=== PATIENT | male | born 1995 | race Caucasian/White ===

== ENCOUNTER 2018-07-09 03:02 | Emergency (ER) | payer SELFPAY ==
[~2018-07-09] VITALS: Ht 172.7 cm; Wt 81.6 kg
[~2018-07-09 03:02] MED LIST: ACET-2267 PO; ALBU2.5V4 NEB; ATOM40CA3 PO; CITA20TA9 PO; CLON1TAB13 PO; ESOM20CA PO; FLUO20CA42 PO; HYDR-34 PO; IBUP-2055 PO; LORA-877 PO; LORA1TAB PO; MONT10TA24 PO; PERM60CR4 TP; SERT100T8 PO; SUMA100T2 PO; VIVANCE PO
--- OUTSIDE RECORDS SUMMARY | 2018-07-09 03:18 | XMS REPORT ---
Author Author OCTAVIA JONES eClinicalWorks Address Unknown Phone Unavailable Care Team Providers Care Morgue Librarian Name Role Phone OCTAVIA JONES CP Unavailable Allergies, Adverse Reactions, Alerts Substance Reaction Event Type N.K.D.A. Info Not Available Non Drug Allergy Problems Problem Type Condition Code Onset Dates Condition Status Assessment Encounter for dental examination Z01.20 Active Problem Encounter for dental examination Z01.20 Active Medications Medication Code System Code Instructions Start Date End Date Status Dosage Gabapentin [facility] [address]-69 300 MG Orally twice a day 1 caps Lexapro [facility] [address]-45 20 MG Orally Once a day Feb 12, 2015 1 tablet Vyvanse [facility] [address]-52 20 MG Orally Once a day Feb 12, 2015 1 capsule in the morning Procedures Procedure Coding System Code Date TOPICAL FLUORIDE VARNISH CPT-4 D1206 Feb 24, 2015 PROPHYLAXIS - ADULT CPT-4 D1110 Feb 24, 2015 Vital Signs Date/Time: Feb 24, 2015 Blood Pressure Diastolic 85 mmHg Blood Pressure Systolic 132 mmHg Cardiac Monitoring Heart Rate 95 bpm Results No Known Results Summary Purpose eClinicalWorks Submission
--- OUTSIDE RECORDS SUMMARY | 2018-07-09 03:18 | XMS REPORT ---
Author Author LEIGHTON FRANCO Organization [facility] Address Unknown Care Team Providers Care Superintendent Storage Area Name Role Phone LEIGHTON FRANCO Unavailable PROBLEMS Type Condition ICD9-CM Code DFD14-NW Code Onset Dates Condition Status SNOMED Code Problem ADD (attention deficit disorder) F90.0 Active 081473768 Problem Bipolar 1 disorder F31.9 Active 164802206 Problem Encounter for dental examination Z01.20 Active 534908525 ALLERGIES No Known Allergies SOCIAL HISTORY Never Assessed PLAN OF CARE Activity Details Follow Up prn Reason:Prophy VITAL SIGNS Blood pressure systolic 131 mmHg 2016-07-06 Blood pressure diastolic 92 mmHg 2016-07-06 MEDICATIONS Medication Instructions Dosage Frequency Start Date End Date Duration Status Gabapentin 300 MG Orally three times a day 1 caps 8h Active Rexulti 0.5 MG Orally Once a day 1 tablet 24h Mar, 30 day(s) Active Lexapro 20 MG Orally Once a day 1 tablet 24h Feb, Active Vyvanse 20 MG Orally. Once a day 1 capsule in the morning 24h Feb, Active Rexulti 0.5 TAKE ONE TABLET BY MOUTH DAILY 30 Active RESULTS No Results PROCEDURES Procedure Date Ordered Result Body Site RSN COMPOS-4/> SURF/W/INCISAL ANG July 06, 2016 Billing Notes on claim July 06, 2016 IMMUNIZATIONS No Known Immunizations MEDICAL (GENERAL) HISTORY Type Description Date Medical History GI issues with significant weight loss Medical History Seizures Surgical History Esophageal 08/2014 Hospitalization History [facility] seizure 11/2014 Hospitalization History [place] 12/2014
--- OUTSIDE RECORDS SUMMARY | 2018-07-09 03:18 | XMS REPORT ---
Author Author ALINE CALIXTO [facility] eClinicalWorks Address Unknown Phone Unavailable Care Team Providers Care Shear Assembler Name Role Phone ALINE CALIXTO CP Unavailable Allergies No Known Allergies Problems Problem Type Condition Code Onset Dates Condition Status Problem Encounter for dental examination Z01.20 Active Medications No Known Medications Results No Known Results Summary Purpose eClinicalWorks Submission
--- OUTSIDE RECORDS SUMMARY | 2018-07-09 03:18 | XMS REPORT | Clinical Summary ---
Author Author [facility] Organization [facility] Address Unknown Phone Unavailable Care Team Providers Care Nuclear Licensing Engineer Name Role Phone Joi Devine Alfredo CLINICAL RADIOLOGIST Unavailable No Pcp, Na PCP Unavailable Anny Silver MD Unavailable Source Comments Some departments are not documenting in the electronic medical record. If you do not see the information that you expected, contact Release of Information in the Health Information Management department at [phone] for further assistance in locating additional records.[facility] Allergies No Known Allergies Medications End Date Status Medication Sig Dispensed Refills Start Date Active escitalopram oxalate Take 20 mg by 0 (LEXAPRO) 20 mg tablet mouth daily. Active GABAPENTIN (NEURONTIN PO) Take 300 mg 0 by mouth twice daily. Active lisdexamfetamine(+) Take 30 mg by 0 (VYVANSE) 30 mg capsule mouth every morning Active Problems No known active problems Family History Medical History Relation Name Comments Hypertension Father Diabetes Maternal Grandmother Heart Disease Maternal Grandmother Cancer-Thyroid Paternal Grandfather Cancer-Thyroid Paternal Grandmother Relation Name Status Comments Father Alive Maternal Grandmother Mother Alive Paternal Grandfather Paternal Grandmother Social History Date Tobacco Use Types Packs/Day Years Used Current Every Day Smoker Sex Assigned at Date Recorded Not on file Industry Job Start Date Occupation Not on file Not on file Not on file Travel End Travel History Travel Start No recent travel history available. Last Filed Vital Signs Time Taken Vital Sign Reading 02/19/2015 10:49 AM TARP REPAIRER Blood Pressure 129/80 02/19/2015 10:49 AM TARP REPAIRER Pulse 87 - Temperature - 02/19/2015 10:49 AM TARP REPAIRER Respiratory Rate 18 - Oxygen Saturation - - Inhaled Oxygen - Concentration 02/19/2015 10:49 AM TARP REPAIRER Weight 63 kg (138 lb 14.2 oz) 02/19/2015 10:49 AM TARP REPAIRER Height 170.1 cm (5' 6.97") 02/19/2015 10:49 AM TARP REPAIRER Body Mass Index 21.77 Plan of Treatment Health Maintenance Due Date Last Done Comments PHYSICAL (COMPREHENSIVE) 2004 EXAM HIV SCREENING 2012 HPV VACCINES (1 - Male 2012 3-dose series) DTAP/TDAP VACCINES (1 - 05/07/2015 Tdap) INFLUENZA VACCINE 12/04/2018 MENINGOCOCCAL VACCINE Aged Out No longer eligible based (Radha ISAAC) on patient's age to complete this topic Results Not on filefrom Last 3 Months Insurance Type Payer Benefit Subscriber ID Effective Phone Address Plan / Dates Group Medicaid [facility] MEDICAID [facility] xxxxxxxxxxx [id number] COMMUNITY resent PLAN [place] Advance Directives Patient has advance care planning documents on file. For more information, please contact: [facility] [address] [place] [address]
--- OUTSIDE RECORDS SUMMARY | 2018-07-09 03:18 | XMS REPORT ---
Author Author ALMAS MACEDO Organization [employer]ClinicalWorks Address Unknown Phone Unavailable Care Team Providers Care Return To Vendor Name Role Phone ALMAS MACEDO CP Unavailable Allergies, Adverse Reactions, Alerts Substance Reaction Event Type N.K.D.A. Info Not Available Non Drug Allergy Problems Problem Type Condition ICD-9 Code Onset Dates Condition Status Assessment Generalized anxiety disorder 300.02 Active Medications Medication Code System Code Instructions Start Date End Date Status Dosage Zoloft [facility] [place] [address]-29 100 MG Orally Once a day Nov 04, 2014 1 tablet Procedures Procedure Coding System Code Date Office Visit, New Pt., Level 5 CPT-4 84028 Nov 04, 2014 Vital Signs Date/Time: Nov 04, 2014 Cardiac Monitoring Heart Rate 68 bpm Weight 120.8 lbs Height 68.0 in Ht Percentile 33.91 % BMI 18.37 Index Blood Pressure Diastolic 44 mmHg Blood Pressure Systolic 102 mmHg BMIPercentile 8.37 % Wt Percentile 11.01 % Results No Known Results Summary Purpose eClinicalWorks Submission
--- OUTSIDE RECORDS SUMMARY | 2018-07-09 03:18 | XMS REPORT ---
Author GODFREY Velázquez [facility] eClinicalWorks Address Unknown Phone Unavailable Care Team Providers Care Care Management Associate Name Role Phone GODFREY PARK CP Unavailable Allergies, Adverse Reactions, Alerts Substance Reaction Event Type N.K.D.A. Info Not Available Non Drug Allergy Problems Problem Type Condition Code Onset Dates Condition Status Problem ADD (attention deficit disorder) F90.0 Active Problem Encounter for dental examination Z01.20 Active Problem Bipolar 1 disorder F31.9 Active Assessment Bipolar 1 disorder F31.9 Active Assessment ADD (attention deficit disorder) F90.0 Active Medications Medication Code System Code Instructions Start Date End Date Status Dosage Gabapentin [facility] [address]-31 300 MG Orally three times a day 1 caps Lexapro [facility] [address]-24 20 MG Orally Once a day Feb 12, 2015 1 tablet Rexulti [facility] [address]-41 0.5 MG Orally Once a day Mar 10, 2015 1 tablet Vyvanse [facility] [address]-74 20 MG Orally. Once a day Feb 12, 2015 1 capsule in the morning Procedures Procedure Coding System Code Date Office Visit, Est Pt., Level 2 CPT-4 27621 June 22, 2015 Vital Signs Date/Time: June 22, 2015 Temperature 99.7 F Weight 156.0 lbs Height 69 in BMI 23.03 Index Blood Pressure Diastolic 75 mmHg Blood Pressure Systolic 110 mmHg Cardiac Monitoring Heart Rate 112 bpm BMIPercentile 63.91 % Wt Percentile 61.59 % Results No Known Results Summary Purpose eClinicalWorks Submission
--- OUTSIDE RECORDS SUMMARY | 2018-07-09 03:18 | XMS REPORT ---
Author Author ALINE CALIXTO Organization [employer]ClinicalWorks Address Unknown Phone Unavailable Care Team Providers Care Joint Terminal Attack Controller Name Role Phone ALINE CALIXTO CP Unavailable Allergies No Known Allergies Problems Problem Type Condition Code Onset Dates Condition Status Assessment Generalized anxiety disorder F41.1 Active Assessment Attention deficit disorder F90.0 Active Assessment Bipolar 1 disorder, depressed, moderate F31.32 Active Medications Medication Code System Code Instructions Start Date End Date Status Dosage Vyvanse [facility] [address]-73 20 MG Orally Once a day Feb 12, 2015 1 capsule in the morning Lexapro [facility] [address]-84 20 MG Orally Once a day Feb 12, [address] [facility] [address]-54 300 MG Orally twice a day 1 caps Vital Signs Date/Time: Feb 12, 2015 Cardiac Monitoring Heart Rate 80 bpm Weight 143 lbs Height 69 in Ht Percentile 45.92 % BMI 21.12 Index Blood Pressure Diastolic 60 mmHg Blood Pressure Systolic 106 mmHg BMIPercentile 41.55 % Wt Percentile 43.36 % Results No Known Results Summary Purpose eClinicalWorks Submission
--- OUTSIDE RECORDS SUMMARY | 2018-07-09 03:19 | XMS REPORT ---
Author Author ALMAS MACEDO Organization [employer]ClinicalWorks Address Unknown Phone Unavailable Care Team Providers Care Public Area Supervisor Name Role Phone ALMAS MACEDO CP Unavailable Allergies, Adverse Reactions, Alerts Substance Reaction Event Type N.K.D.A. Info Not Available Non Drug Allergy Problems Problem Type Condition Code Onset Dates Condition Status Assessment Bipolar 1 disorder, depressed, moderate F31.32 Active Medications Medication Code System Code Instructions Start Date End Date Status Dosage Gabapentin [facility] 2[facility] [address]-90 100 MG Orally twice a day 2 caps Zoloft [facility] 2[facility] [address]-91 25 MG Orally Once a day Nov 04, 2014 1 tablet Procedures Procedure Coding System Code Date Office Visit, Est Pt., Level 3 CPT-4 95425 Dec 09, 2014 Vital Signs Date/Time: Dec 09, 2014 Cardiac Monitoring Heart Rate 96 bpm Weight 135.2 lbs Height 68.2 in Ht Percentile 35.74 % BMI 20.43 Index Blood Pressure Diastolic 60 mmHg Blood Pressure Systolic 110 mmHg BMIPercentile 32.86 % Wt Percentile 31.27 % Results No Known Results Summary Purpose eClinicalWorks Submission
--- OUTSIDE RECORDS SUMMARY | 2018-07-09 03:19 | XMS REPORT ---
Author Author CRISTOFER ARTEAGA Organization eClinicalWorks Address Unknown Phone Unavailable Care Team Providers Care Rehab Specialist Name Role Phone CRISTOFER ARTEAGA CP Unavailable Allergies, Adverse Reactions, Alerts Substance Reaction Event Type N.K.D.A. Info Not Available Non Drug Allergy Problems Problem Type Condition Code Onset Dates Condition Status Assessment Dental examination Z01.20 Active Medications Medication Code System Code Instructions Start Date End Date Status Dosage Lexapro [facility] [address]-11 20 MG Orally Once a day Feb 12, 2015 1 tablet Vyvanse [facility] [address]-28 20 MG Orally Once a day Feb 12, 2015 1 capsule in the morning Gabapentin [facility] [address]-67 300 MG Orally twice a day 1 caps Procedures Procedure Coding System Code Date INTRAORL-PERIAPICAL 1 FILM 06447 CPT-4 D0220 Feb 23, 2015 LTD ORAL EVALUATION - PROBLEM FOCUS CPT-4 D0140 Feb 23, 2015 Vital Signs Date/Time: Feb 23, 2015 Blood Pressure Diastolic 85 mmHg Blood Pressure Systolic 139 mmHg Results No Known Results Summary Purpose eClinicalWorks Submission
--- OUTSIDE RECORDS SUMMARY | 2018-07-09 03:19 | XMS REPORT ---
Author Author LEIGHTON FRANCO Organization [facility] Address Unknown Care Team Providers Care Blood Tester Fowl Name Role Phone LEIGHTON FRANCO Unavailable PROBLEMS Type Condition ICD9-CM Code OWC17-SC Code Onset Dates Condition Status SNOMED Code Problem ADD (attention deficit disorder) F90.0 Active 684936185 Problem Bipolar 1 disorder F31.9 Active 648734683 Problem Encounter for dental examination Z01.20 Active 674410781 ALLERGIES No Known Allergies SOCIAL HISTORY Never Assessed PLAN OF CARE Activity Details Follow Up prn Reason:1 hour filling VITAL SIGNS MEDICATIONS Medication Instructions Dosage Frequency Start Date End Date Duration Status Rexulti 0.5 MG Orally Once a day 1 tablet 24h Mar, 30 day(s) Active Lexapro 20 MG Orally Once a day 1 tablet 24h Feb, Active Rexulti 0.5 TAKE ONE TABLET BY MOUTH DAILY 30 Active Gabapentin 300 MG Orally three times a day 1 caps 8h Active Vyvanse 20 MG Orally. Once a day 1 capsule in the morning 24h Feb, Active RESULTS No Results PROCEDURES Procedure Date Ordered Result Body Site LTD ORAL EVALUATION - PROBLEM FOCUS Apr 22, 2016 INTRAORL-PERIAPICAL 1 FILM 02087 Apr 22, 2016 IMMUNIZATIONS No Known Immunizations MEDICAL (GENERAL) HISTORY Type Description Date Medical History GI issues with significant weight loss Medical History Seizures Surgical History Esophageal 08/2014 Hospitalization History [facility] seizure 11/2014 Hospitalization History [place] 12/2014
--- OUTSIDE RECORDS SUMMARY | 2018-07-09 03:19 | XMS REPORT ---
Author Author ALINE CALIXTO Organization eClinicalWorks Address Unknown Phone Unavailable Care Team Providers Care System Technologist Name Role Phone ALINE CALIXTO CP Unavailable Allergies No Known Allergies Problems Problem Type Condition Code Onset Dates Condition Status Assessment Bipolar 1 disorder, depressed, moderate F31.32 Active Assessment Generalized anxiety disorder F41.1 Active Problem Encounter for dental examination Z01.20 Active Assessment Major depressive disorder F32.9 Active Medications Medication Code System Code Instructions Start Date End Date Status Dosage Rexulti [facility] [address]-50 0.5 MG Orally Once a day Mar 10, 2015 1 tablet Vyvanse [facility] [address]-53 20 MG Orally Once a day Feb 12, 2015 1 capsule in the morning Lexapro [facility] [address]-14 20 MG Orally Once a day Feb 12, 2015 1 tablet Gabapentin [facility] [address]-93 300 MG Orally three times a day 1 caps Procedures Procedure Coding System Code Date Office Visit, Est Pt., Level 3 CPT-4 73211 Mar 10, 2015 Vital Signs Date/Time: Mar 10, 2015 Cardiac Monitoring Heart Rate 98 bpm Weight 145.5 lbs Height 69 in Ht Percentile 45.6 % BMI 21.48 Index Blood Pressure Diastolic 72 mmHg Blood Pressure Systolic 128 mmHg BMIPercentile 46.01 % Wt Percentile 46.95 % Results No Known Results Summary Purpose eClinicalWorks Submission
--- OUTSIDE RECORDS SUMMARY | 2018-07-09 03:19 | XMS REPORT ---
Author Author ALMAS MACEDO Organization eClinicalWorks Address Unknown Phone Unavailable Care Team Providers Care Wastewater Superintendent Name Role Phone ALMAS MACEDO CP Unavailable Allergies, Adverse Reactions, Alerts Substance Reaction Event Type N.K.D.A. Info Not Available Non Drug Allergy Problems Problem Type Condition Code Onset Dates Condition Status Assessment Bipolar 1 disorder, depressed, moderate F31.32 Active Medications Medication Code System Code Instructions Start Date End Date Status Dosage Zoloft [facility] [address]-35 50 MG Orally Once a day Nov 04, 2014 1 tablet Gabapentin [facility] [address]-83 300 MG Orally twice a day 1 caps Procedures Procedure Coding System Code Date Office Visit, Est Pt., Level 3 CPT-4 19876 Jan 13, 2015 Vital Signs Date/Time: Jan 13, 2015 Blood Pressure Systolic 110 mmHg Weight 137.9 lbs Height 68.2 in Wt Percentile 35.19 % Ht Percentile 35.39 % BMI 20.84 Index Blood Pressure Diastolic 55 mmHg BMIPercentile 38.19 % Results No Known Results Summary Purpose eClinicalWorks Submission
--- OUTSIDE RECORDS SUMMARY | 2018-07-09 03:20 | XMS REPORT | Continuity of Care Document ---
Author Organization Unknown Address Unknown Allergies Active Description Code Type Severity Reaction Onset Reported/Identified Relationship to Patient Clinical Status Yes No Known Drug Allergies [id number] Drug Allergy Unknown N/A 01/19/2010 Medications There is no data. Problems Date Dx Coded Attending Type Code Diagnosis Diagnosed By 01/26/2010 Ot 474.00 05/27/2014 Ot 474.00 05/27/2014 Ot V72.63 05/27/2014 Ot V74.8 05/29/2014 JANIE WILSON, MILDRED S Ot 530.11 05/29/2014 JANIE WILSON, MILDRED S Ot 530.3 05/29/2014 JANIE WILSON, MILDRED S Ot 553.3 05/29/2014 JANIE WILSON, MILDRED S Ot 787.99 06/17/2014 JANIE WILSON, MILDRED S Ot V72.84 06/19/2014 JANIE WILSON, MILDRED S Ot 530.11 06/19/2014 JANIE WILSON, MILDRED S Ot 553.3 06/24/2014 JANIE WILSON, MILDRED S Ot V72.84 06/27/2014 Ot 474.00 06/27/2014 Ot V72.63 06/27/2014 Ot V74.8 07/08/2014 Ot 474.00 07/08/2014 Ot V72.63 07/08/2014 Ot V74.8 07/10/2014 JANIE WILSON, MILDRED S Ot 530.11 08/01/2014 JANIE WILSON, MILDRED S Ot 530.11 08/01/2014 JANIE WILSON, MILDRED S Ot V72.63 08/01/2014 JANIE WILSON, MILDRED S Ot V74.8 08/04/2014 JANIE WILSON, MILDRED S Ot 530.11 08/04/2014 JANIE WILSON, MILDRED S Ot 530.3 08/04/2014 JANIE WILSON, MILDRED S Ot 530.81 08/04/2014 JANIE WILSON, MILDRED S Ot 553.3 08/12/2014 Ot 474.00 08/12/2014 Ot V72.63 08/12/2014 Ot V74.8 08/13/2014 JAIME WILSON, FELICITAS Fernádnez Ot 783.21 08/13/2014 JAIME WILSON, FELICITAS Fernández Ot 787.03 08/13/2014 JAIME WILSON, FELICITAS Fernández Ot 789.00 08/13/2014 JANIE WILSON, MILDRED S Ot V72.84 08/13/2014 JANIE WILSON, MILDRED S Ot V72.84 08/13/2014 JANIE WILSON, MILDRED S Ot V72.84 08/13/2014 JANIE WILSON, MILDRED S Ot 530.11 08/13/2014 JANIE WILSON, MILDRED S Ot V72.63 08/13/2014 JANIE WILSON, MILDRED S Ot V74.8 08/13/2014 JANIE WILSON, MILDRED S Ot 530.11 08/13/2014 JANIE WILSON, MILDRED S Ot V72.63 08/13/2014 JANIE WILSON, MILDRED S Ot V74.8 08/26/2014 JAIME WILSON, FELICITAS Fernández Ot 783.21 08/26/2014 JAIME WILSON, FELICITAS Fernández Ot 787.03 08/26/2014 JAIME WILSON, FELICITAS Fernández Ot 789.00 08/26/2014 JANIE WILSON, MILDRED S Ot 530.11 08/26/2014 JANIE WILSON, MILDRED S Ot V72.63 08/26/2014 JANIE WILSON, MILDRED S Ot V74.8 10/14/2014 JANIE WILSON, MILRDED S Ot 783.21 10/14/2014 JANIE WILSON, MILDRED S Ot V12.79 10/14/2014 JANIE WILSON, MILDRED S Ot V45.89 10/28/2014 REHAN SQUIRES STAVE [employer] HAND Ot 133.0 10/28/2014 REHAN SQUIRES ST[employer] HAND Ot 311 10/28/2014 REHAN SQUIRES STAVE M[employer] HAND Ot 314.01 10/28/2014 REHAN SQUIRES STAVE [employer] HAND Ot 783.21 10/28/2014 REHAN SQUIRES STAVE MILL HAND Ot 959.01 10/28/2014 REHAN SQUIRES STAVE MILL HAND Ot E000.8 10/28/2014 REHAN SQUIRES STAVE MILL HAND Ot E849.0 10/28/2014 REHAN SQUIRES STAVE MILL HAND Ot E880.9 10/28/2014 REHAN SQUIRES STAVE MILL HAND Ot V58.69 11/13/2014 JAIME WILSON, FELICITAS Fernández Ot 276.51 11/13/2014 JAIME WILSON, FELICITAS Fernández Ot 486 11/13/2014 JAIME WILSON, FELICITAS Fernández Ot 493.90 11/13/2014 JAIME WILSON, FELICITAS Fernández Ot 783.0 11/13/2014 JAIME WILSON, FELICITAS Jolene Ot 783.21 11/28/2014 JAIME WILSON, FELICITAS Jolene Ot 276.51 11/28/2014 JAIME WILSON, FELICITAS Fernández Ot 493.90 11/28/2014 JAIME WILSON, FELICITAS Fernández Ot 780.39 03/20/2015 FELICITAS SANDOVAL MD Jolene Ot R10.9 03/20/2015 FELICITAS SANDOVAL MD Jolene Ot R11.2 Procedures There is no data. Results There is no data. Encounters ACCT No. Visit Date/Time Discharge Status Pt. Type Provider Facility Loc./Unit Complaint [id number] 03/04/2015 07:10:00 03/04/2015 23:59:59 CLS Outpatient FELICITAS SANDOVAL MD Via [facility] [id number] 11/26/2014 21:10:00 11/28/2014 09:30:00 DIS Inpatient FELICITAS SANDOVAL MD Via [facility] [id number] 11/13/2014 12:13:00 11/13/2014 16:40:00 DIS Inpatient FELICITAS SANDOVAL MD Via [address] [id number] 10/28/2014 11:19:00 10/28/2014 13:39:00 DIS Emergency REHAN SQUIRES APRN Via [facility] [id number] 10/14/2014 10:16:00 10/14/2014 12:40:00 DIS Outpatient MILDRED LIMA MD Via [facility] [id number] 08/04/2014 06:02:00 08/04/2014 13:00:00 DIS Outpatient MILDRED LIMA MD Via [facility] [id number] 07/30/2014 10:30:00 07/30/2014 23:59:59 CLS Outpatient MILDRED LIMA MD Via [facility] [id number] 07/10/2014 08:01:00 07/10/2014 10:30:00 DIS Outpatient JANIE WILSON, MILDRED Cifuentes Via [facility] [id number] 07/09/2014 05:54:00 07/09/2014 23:59:59 CLS Outpatient MILDRED LIMA MD Via [facility] [id number] 06/19/2014 06:58:00 06/19/2014 09:12:00 DIS Outpatient MILDRED LIMA MD Via [facility] [id number] 06/18/2014 06:14:00 06/18/2014 23:59:59 CLS Outpatient JANIE WILSON MILDRED Vane Via [facility] [id number] 05/29/2014 07:56:00 05/29/2014 11:40:00 DIS Outpatient MILDRED LIMA MD Via [facility] [id number] 05/28/2014 11:55:00 05/28/2014 23:59:59 CLS Outpatient MILDRED LIMA MD Via [facility] [id number] 05/27/2014 12:02:00 05/27/2014 23:59:59 CLS Outpatient FELICITAS SANDOVAL MD Via [facility] [id number] 01/26/2010 05:52:00 Document Registration [id number] 01/19/2010 14:30:00 Document Registration [id number] 11/27/2014 07:42:45 ACT Document Registration
[2018-07-09] MEDS ORDERED: AMOX-358 PO (03:39)
--- NOTE | 2018-07-09 03:40 | ED EENT ---
History of Present Illness General Chief Complaint: Ear Problems Nursing Triage Note: Pt amb to room #6 w/o difficulty. a&Ox4. c/o stabbing pain to Lt ear that woke him up this am. Pt reports earache in Rt ear for approx one week and was due to be seen @ [facility] this am. Reports to have placed peppermint oil, lavender oil, and vix rub on Lt ear in an attempt to help discomfort P[employer]. Pt noted to be restless during triage. Source: patient Exam Limitations: no limitations History of Present Illness Date Seen by Provider: July 09, 2018 Time Seen by Provider: 03:27 Initial Comments Patient presents with his significant other and chief complaint that he's having some pain in his right ear earlier in the day that spread to include his left ear as well but now his left ear is insignificant sharp stabbing pain. No discharge from either ear. No known fever or chills. He said he doesn't have any Tylenol Motrin other medicines to take at home. Has not been on antibiotics recently. He did try some essential oils without benefit. No history of previous ear surgery. Allergies and Home Medications Allergies Coded Allergies: No Known Drug Allergies (Unverified , 01/19/10) Home Medications Acetaminophen 500 Mg Tablet, 1,000 MG PO DAILY PRN for XAVIER, (Reported) Ibuprofen 200 Mg Tablet, 800 MG PO DAILY PRN for PAIN, (Reported) Loratadine/Pseudoephedrine 1 Each Tab.er.24h, 1 TAB PO DAILY, (Reported) Montelukast Sodium 10 Mg Tablet, 10 MG PO HS, (Reported) Sertraline HCl 100 Mg Tablet, 100 MG PO DAILY, (Reported) Sumatriptan Succinate 100 Mg Tablet, 100 MG PO UD PRN for MIGRAINE, (Reported) Patient Home Medication List Home Medication List Reviewed: Yes Review of Systems Review of Systems Constitutional: No chills, No fever; malaise Eyes: Denies Blindness, Denies Blurred Vision Ears: Denies Dizziness; Pain; Denies Tinnitus, Denies Bloody Discharge, Denies Clear Discharge, Denies Purulent Discharge Nose: denies clots, denies congestion Mouth: denies clots, denies loose teeth Throat: denies swelling, denies discharge Past Bukdwxf-Irekyf-Rusuxf Hx Patient Social History Alcohol Use: Rarely Uses Recreational Drug Use: Yes Drug of Choice: THC Smoking Status: Current Everyday Smoker Type Used: Cigarettes 2nd Hand Smoke Exposure: No Recent Foreign Travel: No Contact w/Someone Who Travel: No Recent Infectious Disease Expo: No Immunizations Up To Date Tetanus Booster (TDap): Unknown PED Vaccines UTD: No Date of Influenza Vaccine: Dec 18, 2013 Past Medical History Surgeries: Yes (MULTIPLE EGD'S - FLAP SURGERY. ) Abdominal Respiratory: Yes Asthma Cardiac: No Neurological: No Reproductive Disorders: No Sexually Transmitted Disease: No Gastrointestinal: Yes (ACID REFLUX) Gastroesophageal Reflux Musculoskeletal: No Endocrine: No Cancer: No Psychosocial: Yes ADD/ADHD, Anxiety, Bipolar, Violent Behavior, Depression Integumentary: No Blood Disorders: No Family Medical History ANXIETY 19 MOTHER BORDERLINE PERSONALITY DISORDER 19 MOTHER DEPRESSION 19 MOTHER Hypertension 19 FATHER Seizure disorder 19 MOTHER Physical Exam Vital Signs Vital Signs - First Documented 07/09/18 03:19 Temp 98.0 Pulse 71 Resp 17 B/P (MAP) 157/72 (100) Pulse Ox 98 O2 Delivery Room Air Height, Weight, BMI Height: 5'8.00" Weight: 180lbs. 0.0oz. 81.551640kb; BMI Method:Stated General Appearance: WD/WN, mild distress Eyes: bilateral eye normal inspection, bilateral eye PERRL, bilateral eye EOMI Ears: bilateral ear auricle normal, bilateral ear canal normal, bilateral ear TM dull, bilateral ear TM red, bilateral ear TM bulging Nose: normal inspection; No active bleeding Mouth/Throat: normal mouth inspection, pharynx normal Neck: non-tender, full range of motion, normal inspection Cardiovascular: normal peripheral pulses, regular rate, rhythm Progress/Results/Core Measures Results/Orders My Orders Orders - XIAO MASON Ketorolac Injection (Toradol Injection) (07/09/18 03:45) Amoxicillin/Clavulanate Tablet (Augmenti (07/09/18 03:45) Vital Signs/I&O 07/09/18 03:19 Temp 98.0 Pulse 71 Resp 17 B/P (MAP) 157/72 (100) Pulse Ox 98 O2 Delivery Room Air Blood Pressure Mean: 100 Progress Progress Note : Time: 03:37 Progress Note Toradol, hot compresses, Augmentin. Departure Impression Primary Impression: Otitis media Qualified Codes: H66.003 - Acute suppurative otitis media without spontaneous rupture of ear drum, bilateral Disposition: 01 HOME, SELF-CARE Condition: Stable Departure-Patient Inst. Decision time for Depature: 03:38 Referrals: [facility] (PCP) Primary Care Physician Patient Instructions: Ear Infections (Otitis Media) (DC) Add. Discharge Instructions: Drink plenty of fluids. 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 Warm compresses applied as necessary along with Tylenol 1000 mg every 8 hours and/or ibuprofen 800 mg every 8 hours. All discharge instructions reviewed with patient and/or family. Voiced understanding. Scripts Amoxicillin/Potassium Clav (Augmentin 875-125 Tablet) 1 Each Tablet 1 EACH PO BID for 10 Days, #19 TAB 0 Refills Prov: XIAO MASON 07/09/18 Work/School Note: Work Release Form Date Seen in the Emergency Department: July 09, 2018 Return to Work: July 10, 2018 Restrictions: No Restrictions XIAO MASON July 09, 2018 03:40
[2018-07-09] MEDS ORDERED: AUGMENTIN 875 MG TAB (AMOXICILLIN/CLAVULANATE) PO ONE (03:45)
[2018-07-09] MEDS ORDERED: KETOROLAC 60 MG/2 ML VIAL IM ONE (03:45)
[2018-07-09 04:04] VITALS: BP 156/45
== END 2018-07-09 04:04 | disposition home or self-care (01) ==
LOC: EDUNIT# 03:02 → ER 03:05
DX: H66.93 Otitis media, unspecified, bilateral (principal); K21.9 Gastro-esophageal reflux disease without esophagitis; F90.9 Attention-deficit hyperactivity disorder, unspecified type; F98.8 Other specified behavioral and emotional disorders with onset usually occurring in childhood and adolescence; F41.9 Anxiety disorder, unspecified; F31.9 Bipolar disorder, unspecified; J45.909 Unspecified asthma, uncomplicated; F12.10 Cannabis abuse, uncomplicated; F17.210 Nicotine dependence, cigarettes, uncomplicated; Z98.890 Other specified postprocedural states
CPT/HCPCS: 99284

== ENCOUNTER 2021-01-23 02:26 | Emergency (ER) | payer SELFPAY ==
[~2021-01-23] VITALS: Ht 175 cm; Wt 99.8 kg
[~2021-01-23 02:26] MED LIST changes: +AMOX-358 PO; -IBUP-2055 PO; +IBUP-2473 PO; -MONT10TA24 PO; +MONT10TA32 PO; +SERT-414 PO; -SERT100T8 PO
[2021-01-23] MEDS ORDERED: LACTATED RINGERS 1,000 ML IV ONE (03:00)
[2021-01-23 03:08] LABS: BASOPHILS # (AUTO) 0.1 10^3/uL (0.0-0.1); BASOPHILS % (AUTO) 0 % (0-10); EOSINOPHILS % (AUTO) 0 % (0-10); HEMATOCRIT 44 % (40-54); HEMOGLOBIN 15.7 g/dL (13.3-17.7); LYMPHOCYTES # (AUTO) 0.7 10^3/uL (1.0-4.0); LYMPHOCYTES % (AUTO) 4 % (12-44); MEAN CORPUSCULAR HEMOGLOBIN 32 pg (25-34); MEAN CORPUSCULAR HGB CONC 35 g/dL (32-36); MEAN CORPUSCULAR VOLUME 90 fL (80-99); MEAN PLATELET VOLUME 9.2 fL (9.0-12.2); MONOCYTES # (AUTO) 1.4 10^3/uL (0.0-1.0); MONOCYTES % (AUTO) 7 % (0-12); NEUTROPHILS # (AUTO) 18.3 10^3/uL (1.8-7.8); NEUTROPHILS % (AUTO) 89 % (42-75); PLATELET COUNT 240 10^3/uL (130-400); WHITE BLOOD COUNT 20.6 10^3/uL (4.3-11.0)
[2021-01-23 03:18] LABS: ALBUMIN 4.8 GM/DL (3.2-4.5); CHLORIDE 104 MMOL/L (98-107); POTASSIUM 3.9 MMOL/L (3.6-5.0); SODIUM 136 MMOL/L (135-145)
[2021-01-23 03:19] LABS: AMYLASE 46 U/L (25-125); CALCIUM 9.8 MG/DL (8.5-10.1)
[2021-01-23 03:20] LABS: GLUCOSE 116 MG/DL (70-105)
[2021-01-23 03:21] LABS: TOTAL PROTEIN 7.9 GM/DL (6.4-8.2)
[2021-01-23 03:22] LABS: BILIRUBIN,TOTAL 0.5 MG/DL (0.1-1.0); CARBON DIOXIDE 17 MMOL/L (21-32)
[2021-01-23 03:24] LABS: ALKALINE PHOSPHATASE 75 U/L (40-136); CREATININE SERUM 1.01 MG/DL (0.60-1.30); GFR ESTIMATED 92
[2021-01-23 03:25] LABS: BUN/CREATININE RATIO 11
[2021-01-23 03:27] LABS: ALANINE AMINOTRANSFERASE 31 U/L (0-55)
[2021-01-23 03:28] LABS: LIPASE 29 U/L (8-78)
[2021-01-23 03:43] LABS: BAND NEUTROPHILS 11 %; LYMPHOCYTES % (MANUAL) 5 %; MONOCYTES % (MANUAL) 5 %; NEUTROPHILS % (MANUAL) 79 %
[2021-01-23 04:28] LABS: BILIRUBIN,URINE 1+ (NEGATIVE); CLARITY,URINE CLEAR; COLOR,URINE YELLOW; GLUCOSE, URINE (UA) NEGATIVE (NEGATIVE); KETONES,URINE 3+ (NEGATIVE); LEUKOCYTE ESTERASE ,URINE NEGATIVE (NEGATIVE); NITRITE,URINE NEGATIVE (NEGATIVE); PH,URINE 8.5 (5-9); PROTEIN,URINE 1+ (NEGATIVE)
[2021-01-23] MEDS ORDERED: IOHEXOL 350 MG/ML 100 ML (OMNIPAQUE 350) VIAL IV ONE (04:45)
[2021-01-23] MEDS ORDERED: NS 100 ML (IVPB) BAG IV ONE (04:45)
[2021-01-23] MEDS ORDERED: HOLD METFORMIN - RECEIVED CONTRAST 20 ML VIAL IV SCH (04:45)
[2021-01-23] MEDS ORDERED: CATHETER FLUSH 10 ML SYR IV PRN (04:45)
[2021-01-23 04:47] LABS: BACTERIA,URINE TRACE /HPF
[2021-01-23 04:49] LABS: AMPHETAMINE SCREEN, URINE NEGATIVE (NEGATIVE); BARBITURATE SCREEN URINE POSITIVE (NEGATIVE); BENZODIAZEPINES SCREEN URINE NEGATIVE (NEGATIVE); CANNABINOID SCREEN, URINE POSITIVE (NEGATIVE); COCAINE SCREEN URINE NEGATIVE (NEGATIVE); METHADONE STAT NEGATIVE (NEGATIVE); METHAMPHETAMINE SCREEN URINE S NEGATIVE (NEGATIVE); OPIATE SCREEN URINE POSITIVE (NEGATIVE); OXYCODONE STAT NEGATIVE (NEGATIVE); PROPOXYPHENE STAT NEGATIVE (NEGATIVE); TRICYCLIC ANTIDEPRESSANTS SCRE NEGATIVE (NEGATIVE)
--- NOTE | 2021-01-23 05:22 | Diagnostic Imaging Report ---
PROCEDURE: CT abdomen and pelvis with contrast. TECHNIQUE: Multiple contiguous axial images were obtained through the abdomen and pelvis after administration of intravenous contrast. Auto Exposure Controls were utilized during the CT exam to meet ALARA standards for radiation dose reduction. All CT scans use one or more of the following dose optimizing techniques: automated exposure control, MA and/or KvP adjustment based on patient size and exam type or iterative reconstruction. INDICATION: Abdominal pain The previous CT abdomen/pelvis exam of 11/26/2014 failed to show any sign of an acute abnormality of the abdomen or pelvis. On this exam, there does seem to be generalized thickening of the wall of the ascending colon and cecum. There is also some thickening of the wall of the rectosigmoid portion of the colon and to a lesser extent the descending colon. These findings are suspicious for acute colitis. There were also a few fluid-filled segments of small bowel present. These are nonspecific but could be related to coexistent enteritis. The appendix was not well-visualized but there are no indirect signs of acute appendicitis. There is no acute abnormality of the abdomen or pelvis noted otherwise. The lung bases are clear. The bone windows show no sign of a fracture or of a destructive lesion. IMPRESSION: 1. The findings do suggest colitis involving the ascending and descending colon as well as the rectosigmoid portion of the colon. There may also be an element of enteritis present. 2. There is no acute abnormality of the abdomen or pelvis noted otherwise. 3. These results were discussed with Dr. Iza García at the time of this dictation. Dictated by: Dictated on workstation # [id number]
--- NOTE | 2021-01-23 05:27 | ED GI ---
General Chief Complaint: Abdominal/GI Problems Stated Complaint: DIARRHEA,ABD PAIN Nursing Triage Note: Pt c/o abdominal pain x 1 week with diarrhea that has started last night. He reports that he is going to the bathroom 3 times an hour Source of Information: Patient History of Present Illness Date Seen by Provider: Jan 23, 2021 Time Seen by Provider: 02:53 Initial Comments PT ARRIVES VIA POV FROM HOME C/O GENERALIZED ABDOMINAL PAIN X 1 WEEK, PAIN IS GENERALIZED AND RADIATES AROUND TO BACK ON BOTH SIDES BEGAN HAVING NAUSEA/VOMITING/DIARRHEA LAST NIGHT HAS VOMITED X 1 TODAY, HAS HAD DIARRHEA 4 TIMES AN HOUR ALL DAY--STATES HE HAS BEEN INCONTINENT WITH DIARRHEA TODAY. HAS HAD SUBJECTIVE FEVER/SWEATS/CHILLS HAS BEEN EATING A LITTLE BIT TODAY AND DRINKING A LITTLE BIT OF LIQUIDS HAS BEEN URINATING NORMALLY NO KNOWN SICK CONTACTS OR SUSPICIOUS FOODS PT HAS HAD REPAIR OF A "GASTRIC FLAP" IN THE PAST, BUT NO OTHER GI PROBLEMS IN THE PAST AND NO GI PROBLEMS FOR A LONG TIME. PT HAS NOT HAD COVID-19 VACCINE PCP: [facility] Allergies and Home Medications Allergies Coded Allergies: No Known Drug Allergies (Unverified , 01/19/10) Patient Home Medication List Home Medication List Reviewed: Yes Acetaminophen (Tylenol Extra Strength) 500 Mg Tablet, 1,000 MG PO DAILY PRN for XAVIER, (Reported) Entered as Reported by: SANDRA CLINE on 11/27/14 1509 Amoxicillin/Potassium Clav (Augmentin 875-125 Tablet) 1 Each Tablet, 1 EACH PO BID Prescribed by: XIAO MASON on 07/09/18 0339 Ciprofloxacin HCl (Ciprofloxacin HCl) 500 Mg Tablet, 500 MG PO BID Prescribed by: MONY POLO on 01/23/21 0532 Dicyclomine HCl (Dicyclomine HCl) 20 Mg Tablet, 20 MG PO Q6H Prescribed by: MONY POLO on 01/23/21 0532 Ibuprofen (Ibuprofen) 200 Mg Tablet, 800 MG PO DAILY PRN for PAIN, (Reported) Entered as Reported by: SANDRA CLINE on 11/27/14 1509 Lactobacillus Acidophilus (Acidophilus Lactobacillus) 1 Gm Powder, 1 GM MC QID Prescribed by: MONY POLO on 01/23/21 0532 Loratadine/Pseudoephedrine (Claritin-D 24 Hour Tablet) 1 Each Tab.er.24h, 1 TAB PO DAILY, (Reported) Entered as Reported by: LETY WEBSTER on 11/13/141616 Metronidazole (Metronidazole) 500 Mg Tablet, 500 MG PO QID Prescribed by: MONY POLO on 01/23/21 0532 Montelukast Sodium (Montelukast Sodium) 10 Mg Tablet, 10 MG PO HS, (Reported) Entered as Reported by: LETY WEBSTER on 11/13/141616 Ondansetron (Ondansetron Odt) 4 Mg Tab.rapdis, 4 MG PO Q4H Prescribed by: MONY POLO on 01/23/21 0532 Sertraline HCl (Sertraline HCl) 100 Mg Tablet, 100 MG PO DAILY, (Reported) Entered as Reported by: LETY WEBSTER on 11/13/141616 Sumatriptan Succinate (Imitrex) 100 Mg Tablet, 100 MG PO UD PRN for MIGRAINE, (Reported) Entered as Reported by: LETY WEBSTER on 11/13/141616 Review of Systems Review of Systems Constitutional: see HPI, chills, diaphoresis, fever, malaise, weakness EENTM: No Symptoms Reported Respiratory: No Symptoms Reported Cardiovascular: No Symptoms Reported Gastrointestinal: See HPI, Abdominal Pain, Diarrhea, Nausea, Poor Appetite, Poor Fluid Intake, Vomiting Genitourinary: No Symptoms Reported Musculoskeletal: see HPI, back pain Skin: no symptoms reported Psychiatric/Neurological: No Symptoms Reported; Denies Headache Endocrine: No Symptoms Reported Hematologic/Lymphatic: No Symptoms Reported Past Tqdxjtn-Xybgsv-Nbfahy Hx Patient Social History Tobacco Use?: Yes Tobacco type used: Cigarettes Smoking Status: Current Everyday Smoker Use of E-Cig and/or Vaping dev: Yes E-Cig or Vaping type used: Nicotine, Marijuana Use of E-Cig and/or Vaping Dinesh: Current Everyday User Substance use?: Yes Substance type: Opiates/Opioids, Misuse of prescript meds, Marijuana, Other (BENZODIAZEPINES) Additional substance use comme: GETS THC, OPIATES AND BENZO'S OFF THE STREET Substance frequency: Daily Alcohol Use?: No Pt feels they are or have been: No Immunizations Up To Date Tetanus Booster (TDap): Unknown PED Vaccines UTD: No Influenza Vaccine Up-to-Date: No; Not Current First/Initial COVID19 Vaccinat: none Past Medical History Surgeries: Yes (MULTIPLE EGD'S - GASTRIC FLAP SURGERY. ) Abdominal Respiratory: Yes Asthma Cardiac: No Neurological: No Reproductive Disorders: No Sexually Transmitted Disease: No Gastrointestinal: Yes (ACID REFLUX) Gastroesophageal Reflux Musculoskeletal: No Endocrine: No HEENT: No (GLASSES) Cancer: No Psychosocial: Yes (POLYSUBSTANCE ABUSE) ADD/ADHD, Anxiety, Bipolar, Violent Behavior, Depression Integumentary: No Blood Disorders: No Family Medical History ANXIETY 19 MOTHER BORDERLINE PERSONALITY DISORDER 19 MOTHER DEPRESSION 19 MOTHER Hypertension 19 FATHER Seizure disorder 19 MOTHER Physical Exam Vital Signs Vital Signs - First Documented 01/23/21 02:50 Temp 37.0 Capillary Refill : Height/Weight/BMI Height: 5'8.00" Weight: 180lbs. 0.0oz. 81.666113co; 32.00 BMI Method:Stated General Appearance: WD/WN, no apparent distress HEENT: PERRL/EOMI, normal ENT inspection, other (ORAL MUCOSA MOIST) Neck: normal inspection Respiratory: normal breath sounds, no respiratory distress, no accessory muscle use Cardiovascular: regular rate, rhythm, no murmur Gastrointestinal: normal bowel sounds, soft, no organomegaly, no pulsatile mass; No distended, No guarding, No rebound; tenderness (MILD DIFFUSE TENDERNESS); No hernia, No mass Extremities: normal inspection Back: no vertebral tenderness, CVA tenderness (R), CVA tenderness (L) Neurologic/Psychiatric: film touch up inspector II-XII nml as tested, no motor/sensory deficits, alert, oriented x 3 Skin: normal color, warm/dry; No rash Progress/Results/Core Measures Results/Orders Lab Results Laboratory Tests Test 01/23/21 02:58 01/23/21 04:15 Range/Units White Blood Count 20.6 H 4.3-11.0 10^3/uL Red Blood Count 4.91 4.30-5.52 10^6/uL Hemoglobin 15.7 13.3-17.7 g/dL Hematocrit 44 40-54 % Mean Corpuscular Volume 90 80-99 fL Mean Corpuscular Hemoglobin 32 25-34 pg Mean Corpuscular Hemoglobin Concent 35 32-36 g/dL Red Cell Distribution Width 11.9 10.0-14.5 % Platelet Count 240 130-400 10^3/uL Mean Platelet Volume 9.2 9.0-12.2 fL Immature Granulocyte % (Auto) 0 % Neutrophils (%) (Auto) 89 H 42-75 % Lymphocytes (%) (Auto) 4 L 12-44 % Monocytes (%) (Auto) 7 0-12 % Eosinophils (%) (Auto) 0 0-10 % Basophils (%) (Auto) 0 0-10 % Neutrophils # (Auto) 18.3 H 1.8-7.8 10^3/uL Lymphocytes # (Auto) 0.7 L 1.0-4.0 10^3/uL Monocytes # (Auto) 1.4 H 0.0-1.0 10^3/uL Eosinophils # (Auto) 0.0 0.0-0.3 10^3/uL Basophils # (Auto) 0.1 0.0-0.1 10^3/uL Immature Granulocyte # (Auto) 0.1 0.0-0.1 10^3/uL Neutrophils % (Manual) 79 % Lymphocytes % (Manual) 5 % Monocytes % (Manual) 5 % Band Neutrophils 11 % Sodium Level 136 135-145 MMOL/L Potassium Level 3.9 3.6-5.0 MMOL/L Chloride Level 104 98-107 MMOL/L Carbon Dioxide Level 17 L 21-32 MMOL/L Anion Gap 15 H 5-14 MMOL/L Blood Urea Nitrogen 11 7-18 MG/DL Creatinine 1.01 0.60-1.30 MG/DL Estimat Glomerular Filtration Rate 92 BUN/Creatinine Ratio 11 Glucose Level 116 H 70-105 MG/DL Calcium Level 9.8 8.5-10.1 MG/DL Corrected Calcium 8.5-10.1 MG/DL Total Bilirubin 0.5 0.1-1.0 MG/DL Aspartate Amino Transf (AST/SGOT) 36 H 5-34 U/L Alanine Aminotransferase (ALT/SGPT) 31 0-55 U/L Alkaline Phosphatase 75 40-136 U/L Total Protein 7.9 6.4-8.2 GM/DL Albumin 4.8 H 3.2-4.5 GM/DL Amylase Level 46 25-125 U/L Lipase 29 8-78 U/L SARS-CoV-2 RNA (RT-PCR) Not Detected Not Detecte Urine Color YELLOW Urine Clarity CLEAR Urine pH 8.5 5-9 Urine Specific [place] 1.010 L 1.016-1.022 Urine Protein 1+ H NEGATIVE Urine Glucose (UA) NEGATIVE NEGATIVE Urine Ketones 3+ H NEGATIVE Urine Nitrite NEGATIVE NEGATIVE Urine Bilirubin 1+ H NEGATIVE Urine Urobilinogen 0.2 < = 1.0 MG/DL Urine Leukocyte Esterase NEGATIVE NEGATIVE Urine RBC (Auto) NEGATIVE NEGATIVE Urine RBC NONE /HPF Urine WBC NONE /HPF Urine Crystals NONE /LPF Urine Bacteria TRACE /HPF Urine Casts NONE /LPF Urine Mucus SMALL H /LPF Urine Culture Indicated NO Urine Opiates Screen POSITIVE H NEGATIVE Urine Oxycodone Screen NEGATIVE NEGATIVE Urine Methadone Screen NEGATIVE NEGATIVE Urine Propoxyphene Screen NEGATIVE NEGATIVE Urine Barbiturates Screen POSITIVE H NEGATIVE Ur Tricyclic Antidepressants Screen NEGATIVE NEGATIVE Urine Phencyclidine Screen NEGATIVE NEGATIVE Urine Amphetamines Screen NEGATIVE NEGATIVE Urine Methamphetamines Screen NEGATIVE NEGATIVE Urine Benzodiazepines Screen NEGATIVE NEGATIVE Urine Cocaine Screen NEGATIVE NEGATIVE Urine Cannabinoids Screen POSITIVE H NEGATIVE Micro Results Microbiology 01/23/21 Stool Culture - Final, Complete Campylobacter jejuni 01/23/21 C. difficile GDH Antigen & Toxins - Final, Complete My Orders Orders - MONY POLO DO Ed Iv/Invasive Line Start (01/23/21 02:52) Monitor-Rhythm Ecg Trace Only (01/23/21 02:52) Amylase (01/23/21 02:52) Cbc With Automated Diff (01/23/21 02:52) Comprehensive Metabolic Panel (01/23/21 02:52) Drug Screen Stat (Urine) (01/23/21 02:52) Lipase (01/23/21 02:52) Ua Culture If Indicated (01/23/21 02:52) Ed Iv/Invasive Line Start (01/23/21 02:52) Lactated Ringers (Lr 1000 Ml Iv Solution (01/23/21 03:00) Covid 19 Inhouse Test (01/23/21 02:52) Manual Differential (01/23/21 02:58) Ct Abdomen/Pelvis W (01/23/21 03:22) Iohexol Injection (Omnipaque 350 Mg/Ml 1 (01/23/21 04:45) Received Contrast (Hold Metformin- Contr (01/23/21 04:45) Sodium Chloride Flush (Catheter Flush Sy (01/23/21 04:45) Ns (Ivpb) (Sodium Chloride 0.9% Ivpb Bag (01/23/21 04:45) Ciprofloxacin Iv 400mg/200ml (Cipro Iv S (01/23/21 05:30) Metronidazole 500mg/100ml Ivpb (Flagyl 5 (01/23/21 05:30) Stool Culture (01/23/21 05:27) Fecal Wbc (01/23/21 05:27) C Difficile Ag + Toxin A/B. (01/23/21 05:27) Isolation Central Supply Req (01/23/21 05:27) Medications Given in ED Vital Signs/I&O 01/23/21 01/23/21 02:50 06:43 Temp 37.0 36.6 B/P (MAP) Progress Progress Note : Progress Note GIVEN IV FLUIDS AND ZOFRAN NO VOMITING DURING ER STAY HAD 2-3 STOOLS DURING ER STAY--CULTURES OBTAINED. NO DETERIORATION IN PT'S CONDITION DURING ER STAY Diagnostic Imaging Comments CT ABDOMEN/PELVIS--COLITIS, PER DR. EDMONDSON VIA PHONE AT 0517 Reviewed: Reviewed by Me, Discussed w/Radiologist Departure Impression Primary Impression: Colitis Additional Impression: Illicit drug use Disposition: HOME, SELF-CARE Condition: Improved Departure-Patient Inst. Decision time for Depature: 05:25 Referrals: [facility] (PCP) Primary Care Physician Patient Instructions: Colitis, Drug Abuse and Drug Addiction (DC) Add. Discharge Instructions: CLEAR LIQUIDS--WATER, BROTH, JELLO, GATORADE WHEN YOUR PAIN AND NAUSEA ARE BETTER, ADD BRATS DIET TO CLEAR LIQUIDS--BANANAS, RICE, APPLESAUCE, TOAST, SALTINES NO DRUGS!! TAKE ONLY MEDICATION THAT IS PRESCRIBED TO YOUR AND TAKE IT EXACTLY PRESCRIBED FOLLOW UP WITH [facility] IN 2-3 DAYS FOR FURTHER CARE, RETURN TO ER IF WORSE All discharge instructions reviewed with patient and/or family. Voiced understanding. Scripts Ondansetron (Ondansetron Odt) 4 Mg Tab.rapdis 4 MG PO Q4H for Nausea/Vomiting, #10 TAB Prov: CHRIST,MONY K DO 01/23/21 Dicyclomine HCl (Dicyclomine HCl) 20 Mg Tablet 20 MG PO Q6H for Abdominal Pain, #20 TAB Prov: CHRIST,MONY K DO 01/23/21 Metronidazole (Metronidazole) 500 Mg Tablet 500 MG PO QID, #28 TAB 0 Refills Prov: CHRIST,MONY K DO 01/23/21 Ciprofloxacin HCl (Ciprofloxacin HCl) 500 Mg Tablet 500 MG PO BID, #14 TAB Prov: MONY POLO DO 01/23/21 Lactobacillus Acidophilus (Acidophilus Lactobacillus) 1 Gm Powder 1 GM MC QID for 10 Days, #1 EA Prov: MONY POLO DO 01/23/21 MONY POLO DO Jan 23, 2021 05:27
[2021-01-23] MEDS ORDERED: CIPROFLOXACIN IV 400MG/200ML 200 ML IV ONE (05:30)
[2021-01-23] MEDS ORDERED: metroNIDAZOLE 500MG/100ML IVPB 100 ML IV ONE (05:30)
[2021-01-23] MEDS ORDERED: METR-145 PO (05:32)
[2021-01-23] MEDS ORDERED: CIPR500T5 PO (05:32)
[2021-01-23] MEDS ORDERED: DICY20TA10 PO (05:32)
[2021-01-23] MEDS ORDERED: ONDA4TAB11 PO (05:32)
[2021-01-23] MEDS ORDERED: LACT1POW8 MC (05:32)
== END 2021-01-23 06:43 | disposition home or self-care (01) ==
LOC: EDUNIT# 02:26 → ER 02:29
DX: K52.9 Noninfective gastroenteritis and colitis, unspecified (principal); F19.90 Other psychoactive substance use, unspecified, uncomplicated; J45.909 Unspecified asthma, uncomplicated; F41.9 Anxiety disorder, unspecified; F32.9 Major depressive disorder, single episode, unspecified; F17.210 Nicotine dependence, cigarettes, uncomplicated; Z20.822 Contact with and (suspected) exposure to COVID-19; Z79.899 Other long term (current) drug therapy
CPT/HCPCS: 36415; 74177; 80053; 80306; 81000; 82150; 83690; 85007; 85027; 87015; 87045; 87046; 87077; 87324; 87449; 87636; 87899; 93041

== ENCOUNTER 2021-05-15 10:17 | Emergency (ER) | payer SELFPAY ==
[~2021-05-15] VITALS: Ht 172 cm; Wt 77.0 kg
[~2021-05-15 10:17] MED LIST changes: +CIPR500T5 PO; +DICY20TA PO; +LACT1POW8 MC; +METR-145 PO; +MONT-40 PO; -MONT10TA32 PO; +ONDA4TAB11 PO
--- NOTE | 2021-05-15 10:55 | ED GI ---
General Chief Complaint: Abdominal/GI Problems Stated Complaint: ABD PAIN Nursing Triage Note: PT TO ED W/ C/O CHRONIC ABD PAIN, WORSE LAST NOC. PT VERY VAGUE ABOUT SYMPTOMS ET C/O. UNABLE TO GET A STRAIGHT ANSWER OUT OF PT AT THIS TIME. DOES REPORT HAD ABD SURGERY W/ "DR LIMA BEFORE HE ". PT CURRENTLY HAS CHEWING TOBACCO IN HIS MOUTH ET IS TALKING WILDLY ABOUT THINGS UNRELATED TO HIS VISIT. WHEN ASKED ABOUT HIS PAIN LEVEL, PT POKED HIMSELF IN THE ABD ET SAID "ABOUT A 5". Source of Information: Patient Exam Limitations: No Limitations (REHAN SQUIRES APRN) History of Present Illness Date Seen by Provider: May 15, 2021 Time Seen by Provider: 10:51 Initial Comments To ER with what he reports is long-term abdominal pain that is worse since last night. He went to bed early because of the pain but awakened at 2 AM with worsening of the pain. He has intermittent nausea. Intermittent constipation and diarrhea. He states that he keeps his albuterol inhaler by the toilet so that he can take a puff of that which will then make him have a bowel movement. States that he had a sharp shooting pain "that started here (pointing to left anterior thigh) and then moved up to here (pointing to left mid abdomen) and then moved up to my jugular veins I thought it was probably just from nerve movement" Timing/Duration: 1-2 Days Severity/Quality: Moderate Location: Generalized Abdomen Radiation: No Radiation Activities at Onset: None Associated Symptoms: Nausea/Vomiting (REHAN SQUIRES APRN) Allergies and Home Medications Allergies Coded Allergies: No Known Drug Allergies (Unverified , 01/19/10) Patient Home Medication List Home Medication List Reviewed: Yes (REHAN SQUIRES APRN) Acetaminophen (Tylenol Extra Strength) 500 Mg Tablet, 1,000 MG PO DAILY PRN for XAVIER, (Reported) Entered as Reported by: SANDRA CLINE on 11/27/14 1509 Amoxicillin/Potassium Clav (Augmentin 875-125 Tablet) 1 Each Tablet, 1 EACH PO BID Prescribed by: XIAO MASON on 07/09/18 0339 Ciprofloxacin HCl (Ciprofloxacin HCl) 500 Mg Tablet, 500 MG PO BID Prescribed by: MONY POLO on 01/23/21 0532 Dicyclomine HCl (Dicyclomine HCl) 20 Mg Tablet, 20 MG PO Q6H Prescribed by: MONY POLO on 01/23/21 0532 Ibuprofen (Ibuprofen) 200 Mg Tablet, 800 MG PO DAILY PRN for PAIN, (Reported) Entered as Reported by: SANDRA CLINE on 11/27/14 1509 Lactobacillus Acidophilus (Acidophilus Lactobacillus) 1 Gm Powder, 1 GM MC QID Prescribed by: MONY POLO on 01/23/21 0532 Loratadine/Pseudoephedrine (Claritin-D 24 Hour Tablet) 1 Each Tab.er.24h, 1 TAB PO DAILY, (Reported) Entered as Reported by: LETY WEBSTER on 11/13/14 161 Metronidazole (Metronidazole) 500 Mg Tablet, 500 MG PO QID Prescribed by: MONY POLO on 01/23/21 05 Montelukast Sodium (Montelukast Sodium) 10 Mg Tablet, 10 MG PO HS, (Reported) Entered as Reported by: LETY WEBSTER on 11/13/14 161 Ondansetron (Ondansetron Odt) 4 Mg Tab.rapdis, 4 MG PO Q4H Prescribed by: MONY POLO on 01/23/21 0532 Ondansetron (Ondansetron Odt) 8 Mg Tab.rapdis, 8 MG PO Q6H PRN for NAUSEA/VOMITING Prescribed by: REHAN SQUIRES on 05/15/21 1219 Sertraline HCl (Sertraline HCl) 100 Mg Tablet, 100 MG PO DAILY, (Reported) Entered as Reported by: LETY WEBSTER on 11/13/14 161 Sumatriptan Succinate (Imitrex) 100 Mg Tablet, 100 MG PO UD PRN for MIGRAINE, (Reported) Entered as Reported by: LETY WEBSTER on 11/13/14 161 Review of Systems Review of Systems Constitutional: see HPI EENTM: No Symptoms Reported Respiratory: No Symptoms Reported Cardiovascular: No Symptoms Reported Gastrointestinal: See HPI, Abdominal Pain, Constipated, Diarrhea, Nausea, Vomiting Genitourinary: No Symptoms Reported Musculoskeletal: no symptoms reported Skin: no symptoms reported Psychiatric/Neurological: No Symptoms Reported Endocrine: No Symptoms Reported Hematologic/Lymphatic: No Symptoms Reported (REHAN SQUIRES HAIR CLIPPER POWER) Past Mdccgmw-Wjgmyl-Cgntgn Hx Patient Social History Tobacco Use?: Yes Tobacco type used: Cigarettes Smoking Status: Current Everyday Smoker Smokeless Tobacco Frequency: Current Everyday User Use of E-Cig and/or Vaping dev: No Substance use?: Yes Additional substance use comme: PT REPORTS HE DOES USE "STUFF" BUT WON'T SAY WHAT HE'S "IN TROUBLE" Substance frequency: Daily Alcohol Use?: No Pt feels they are or have been: No (REHAN SQUIRES APRN) Immunizations Up To Date Tetanus Booster (TDap): Unknown PED Vaccines UTD: No First/Initial COVID19 Vaccinat: none (REHAN SQUIRES APRN) Past Medical History Surgery/Hospitalization HX: ABD SURGERY, SEIZURES, ASTHMA Surgeries: Yes (MULTIPLE EGD'S - GASTRIC FLAP SURGERY. ) Abdominal Respiratory: Yes Asthma Cardiac: No Neurological: No Reproductive Disorders: No Sexually Transmitted Disease: No Gastrointestinal: Yes (ACID REFLUX) Gastroesophageal Reflux Musculoskeletal: No Endocrine: No HEENT: No (GLASSES) Cancer: No Psychosocial: Yes (POLYSUBSTANCE ABUSE) ADD/ADHD, Anxiety, Bipolar, Violent Behavior, Depression Integumentary: No Blood Disorders: No (REHAN SQUIRES APRN) Family Medical History ANXIETY 19 MOTHER BORDERLINE PERSONALITY DISORDER 19 MOTHER DEPRESSION 19 MOTHER Hypertension 19 FATHER Seizure disorder 19 MOTHER Physical Exam Vital Signs Vital Signs - First Documented 05/15/21 10:26 Temp 36.1 Pulse 109 Resp 20 B/P (MAP) 145/108 (120) Pulse Ox 95 O2 Delivery Room Air (EAMON BADILLO MD) Vital Signs Capillary Refill : Less Than 3 Seconds (REHAN SQUIRES APRN) Height/Weight/BMI Height: 5'8.00" Weight: 180lbs. 0.0oz. 81.451213wb; 26.00 BMI Method:Stated General Appearance: WD/WN, no apparent distress, other (Speaks in a loud voice at a high rate of speed about a variety of subjects and has difficulty staying on topic. Rather bizarre eccentric conversation.) HEENT: PERRL/EOMI, normal ENT inspection Respiratory: normal breath sounds, no respiratory distress, no accessory muscle use Cardiovascular: no murmur, tachycardia Gastrointestinal: normal bowel sounds, non tender, soft Extremities: normal range of motion, non-tender, normal inspection Neurologic/Psychiatric: alert, oriented x 3, other (Somewhat bizarre conversation with a variety of topics and a high rate of speech and a loud voice.) Skin: normal color, warm/dry (REHAN SQUIRES APRN) Progress/Results/Core Measures Results/Orders Lab Results Laboratory Tests Test 05/15/21 10:52 05/15/21 10:59 05/15/21 11:55 Range/Units White Blood Count 14.9 H 4.3-11.0 10^3/uL Red Blood Count 4.61 4.30-5.52 10^6/uL Hemoglobin 14.9 13.3-17.7 g/dL Hematocrit 43 40-54 % Mean Corpuscular Volume 94 80-99 fL Mean Corpuscular Hemoglobin 32 25-34 pg Mean Corpuscular Hemoglobin Concent 35 32-36 g/dL Red Cell Distribution Width 11.9 10.0-14.5 % Platelet Count 283 130-400 10^3/uL Mean Platelet Volume 9.1 9.0-12.2 fL Immature Granulocyte % (Auto) 0 % Neutrophils (%) (Auto) 86 H 42-75 % Lymphocytes (%) (Auto) 6 L 12-44 % Monocytes (%) (Auto) 7 0-12 % Eosinophils (%) (Auto) 0 0-10 % Basophils (%) (Auto) 0 0-10 % Neutrophils # (Auto) 12.8 H 1.8-7.8 10^3/uL Lymphocytes # (Auto) 0.9 L 1.0-4.0 10^3/uL Monocytes # (Auto) 1.1 H 0.0-1.0 10^3/uL Eosinophils # (Auto) 0.1 0.0-0.3 10^3/uL Basophils # (Auto) 0.1 0.0-0.1 10^3/uL Immature Granulocyte # (Auto) 0.1 0.0-0.1 10^3/uL Neutrophils % (Manual) 86 % Lymphocytes % (Manual) 4 % Monocytes % (Manual) 5 % Eosinophils % (Manual) 0 % Basophils % (Manual) 1 % Band Neutrophils 3 % Reactive Lymphocytes 1 % Blood Morphology Comment NORMAL Sodium Level 136 135-145 MMOL/L Potassium Level 4.1 3.6-5.0 MMOL/L Chloride Level 107 98-107 MMOL/L Carbon Dioxide Level 17 L 21-32 MMOL/L Anion Gap 12 5-14 MMOL/L Blood Urea Nitrogen 10 7-18 MG/DL Creatinine 0.76 0.60-1.30 MG/DL Estimat Glomerular Filtration Rate 129 BUN/Creatinine Ratio 13 Glucose Level 91 70-105 MG/DL Calcium Level 9.1 8.5-10.1 MG/DL Corrected Calcium 8.9 8.5-10.1 MG/DL Total Bilirubin 0.4 0.1-1.0 MG/DL Aspartate Amino Transf (AST/SGOT) 21 5-34 U/L Alanine Aminotransferase (ALT/SGPT) 19 0-55 U/L Alkaline Phosphatase 54 40-136 U/L Total Protein 6.4 6.4-8.2 GM/DL Albumin 4.2 3.2-4.5 GM/DL Lipase 26 8-78 U/L Serum Alcohol < 10 <10 MG/DL Urine Color YELLOW Urine Clarity CLEAR Urine pH 8.5 5-9 Urine Specific [place] 1.020 1.016-1.022 Urine Protein NEGATIVE NEGATIVE Urine Glucose (UA) NEGATIVE NEGATIVE Urine Ketones NEGATIVE NEGATIVE Urine Nitrite NEGATIVE NEGATIVE Urine Bilirubin NEGATIVE NEGATIVE Urine Urobilinogen 0.2 < = 1.0 MG/DL Urine Leukocyte Esterase NEGATIVE NEGATIVE Urine RBC (Auto) NEGATIVE NEGATIVE Urine RBC NONE /HPF Urine WBC NONE /HPF Urine Squamous Epithelial Cells NONE /HPF Urine Crystals NONE /LPF Urine Bacteria NEGATIVE /HPF Urine Casts NONE /LPF Urine Mucus NEGATIVE /LPF Urine Culture Indicated NO Urine Opiates Screen NEGATIVE NEGATIVE Urine Oxycodone Screen NEGATIVE NEGATIVE Urine Methadone Screen NEGATIVE NEGATIVE Urine Propoxyphene Screen NEGATIVE NEGATIVE Urine Barbiturates Screen NEGATIVE NEGATIVE Ur Tricyclic Antidepressants Screen NEGATIVE NEGATIVE Urine Phencyclidine Screen NEGATIVE NEGATIVE Urine Amphetamines Screen NEGATIVE NEGATIVE Urine Methamphetamines Screen NEGATIVE NEGATIVE Urine Benzodiazepines Screen NEGATIVE NEGATIVE Urine Cocaine Screen NEGATIVE NEGATIVE Urine Cannabinoids Screen POSITIVE H NEGATIVE Erythrocyte Sedimentation Rate 1 0-15 MM/HR C-Reactive Protein High Sensitivity 0.84 H 0.00-0.50 MG/DL (EAMON BADILLO MD) Medications Given in ED Current Medications Medications Dose Ordered Sig/Isai Route Start Time Stop Time Status Last Admin Dose Admin Al Hydrox/Mg Hydrox/Simethicone 30 ml ONCE ONCE PO 05/15/21 11:00 05/15/21 11:01 DC 05/15/21 11:00 30 ML Diphenhydramine HCl 25 mg ONCE ONCE IVP 05/15/21 11:00 05/15/21 11:01 DC 05/15/21 11:00 25 MG Iohexol 100 ml ONCE ONCE IV 05/15/21 11:30 05/15/21 11:31 DC 05/15/21 11:54 100 ML Lidocaine HCl 15 ml ONCE ONCE PO 05/15/21 11:00 05/15/21 11:01 DC 05/15/21 11:00 15 ML Ondansetron HCl 8 mg ONCE ONCE IVP 05/15/21 11:00 05/15/21 11:01 DC 05/15/21 11:04 8 MG Sodium Chloride 100 ml ONCE ONCE IV 05/15/21 11:30 05/15/21 11:31 DC 05/15/21 11:54 80 ML (EAMON BADILLO MD) Vital Signs/I&O 05/15/21 10:26 Temp 36.1 Pulse 109 Resp 20 B/P (MAP) 145/108 (120) Pulse Ox 95 O2 Delivery Room Air (EAMON BADILLO MD) Blood Pressure Mean: 120 Departure Communication (Admissions) 1233-standing up walking around the room states that he is feeling much better and ready to go home. Blood pressure is little low at 95/58 but he is up walking around mentating well NAME: FELICITAS SANDOVAL [facility] REC#: [id number] PT STATUS: REG ER : 1995 PHYSICIAN: REHAN SQUIRES HAIR CLIPPER POWER ADMIT DATE: 05/15/21/ER Draft Date of Exam:05/15/21 CT ABDOMEN/PELVIS W PROCEDURE: CT abdomen and pelvis with contrast. TECHNIQUE: Multiple contiguous axial images were obtained through the abdomen and pelvis after administration of intravenous contrast. Auto Exposure Controls were utilized during the CT exam to meet ALARA standards for radiation dose reduction. All CT scans use one or more of the following dose optimizing techniques: automated exposure control, MA and/or KvP adjustment based on patient size and exam type or iterative reconstruction. INDICATION: Worsening abdominal pain. COMPARISON: Comparison is made with prior CT from 01/23/2021. FINDINGS: The lung bases are clear. Liver and gallbladder are unremarkable. Pancreas and spleen are unremarkable. No adrenal mass is detected. Kidneys are without evidence of hydronephrosis. Aorta is nonaneurysmal. There are some nonspecific mildly dilated fluid-filled small bowel loops in the right abdomen. Remainder of the bowel loops appear unremarkable. There is no free fluid. No fluid collection is seen. There is no free air identified. No definite inflammatory changes are seen. The bladder and prostate are unremarkable. IMPRESSION: There is some mild nonspecific fluid-filled distention of small bowel loops in the right lower quadrant, perhaps on the basis of nonspecific enteritis. The study is otherwise unremarkable. Dictated on workstation # [id number] Dict: 05/15/21 1156 Trans: 05/15/21 1214 [id number] Interpreted by: OLIVE MEZA MD Electronically signed by: (REHAN SQUIRES APRN) Impression Primary Impression: Enteritis Disposition: 01 HOME, SELF-CARE Condition: Stable Departure-Patient Inst. Decision time for Depature: 12:18 (REHAN SQUIRES APRN) Referrals: [facility] (PCP/Family) Primary Care Physician Patient Instructions: Viral Gastroenteritis, Adult (DC) Add. Discharge Instructions: 1. Drink plenty of fluids. Nausea medication as needed. Return to ER for any worsening. All discharge instructions reviewed with patient and/or family. Voiced understanding. Scripts Ondansetron (Ondansetron Odt) 8 Mg Tab.rapdis 8 MG PO Q6H PRN for NAUSEA/VOMITING, #10 TAB Prov: REHAN SQUIRES APRN 05/15/21 ATTENDING PHYSICIAN NOTE: I was physically present as attending physician in the emergency department during the care of this patient, but I was not directly involved in the decision making or delivery of care for this patient. (EAMON BADILLO MD) REHAN SQUIRES APRN May 15, 2021 10:55 EAMON BADILLO MD May 15, 2021 13:48
[2021-05-15 10:56] LABS: BASOPHILS # (AUTO) 0.1 10^3/uL (0.0-0.1); BASOPHILS % (AUTO) 0 % (0-10); EOSINOPHILS # (AUTO) 0.1 10^3/uL (0.0-0.3); EOSINOPHILS % (AUTO) 0 % (0-10); HEMATOCRIT 43 % (40-54); HEMOGLOBIN 14.9 g/dL (13.3-17.7); LYMPHOCYTES # (AUTO) 0.9 10^3/uL (1.0-4.0); LYMPHOCYTES % (AUTO) 6 % (12-44); MEAN CORPUSCULAR HEMOGLOBIN 32 pg (25-34); MEAN CORPUSCULAR HGB CONC 35 g/dL (32-36); MEAN CORPUSCULAR VOLUME 94 fL (80-99); MEAN PLATELET VOLUME 9.1 fL (9.0-12.2); MONOCYTES # (AUTO) 1.1 10^3/uL (0.0-1.0); MONOCYTES % (AUTO) 7 % (0-12); NEUTROPHILS # (AUTO) 12.8 10^3/uL (1.8-7.8); NEUTROPHILS % (AUTO) 86 % (42-75); PLATELET COUNT 283 10^3/uL (130-400); WHITE BLOOD COUNT 14.9 10^3/uL (4.3-11.0)
[2021-05-15] MEDS ORDERED: ONDANSETRON 4 MG/2 ML (SDV) Z0FRAN IVP ONE (11:00)
[2021-05-15] MEDS ORDERED: LIDOCAINE 2% VISCOUS 15 ML UDC PO ONE (11:00)
[2021-05-15] MEDS ORDERED: ANTACID SUSP 30 ML UDC (MYLANTA) PO ONE (11:00)
[2021-05-15] MEDS ORDERED: diphenhydrAMINE 50 MG/ML INJ (BENADRYL) IVP ONE (11:00)
[2021-05-15] MEDS ORDERED: LACTATED RINGERS 1,000 ML IV SCH (11:00)
[2021-05-15 11:03] LABS: ALBUMIN 4.2 GM/DL (3.2-4.5); CHLORIDE 107 MMOL/L (98-107); POTASSIUM 4.1 MMOL/L (3.6-5.0); SODIUM 136 MMOL/L (135-145)
[2021-05-15 11:04] LABS: CALCIUM 9.1 MG/DL (8.5-10.1)
[2021-05-15 11:05] LABS: BILIRUBIN,URINE NEGATIVE (NEGATIVE); CLARITY,URINE CLEAR; COLOR,URINE YELLOW; GLUCOSE, URINE (UA) NEGATIVE (NEGATIVE); KETONES,URINE NEGATIVE (NEGATIVE); LEUKOCYTE ESTERASE ,URINE NEGATIVE (NEGATIVE); NITRITE,URINE NEGATIVE (NEGATIVE); PH,URINE 8.5 (5-9); PROTEIN,URINE NEGATIVE (NEGATIVE)
[2021-05-15 11:05] LABS: GLUCOSE 91 MG/DL (70-105)
[2021-05-15 11:06] LABS: TOTAL PROTEIN 6.4 GM/DL (6.4-8.2)
[2021-05-15 11:07] LABS: BILIRUBIN,TOTAL 0.4 MG/DL (0.1-1.0); CARBON DIOXIDE 17 MMOL/L (21-32)
[2021-05-15 11:09] LABS: ALKALINE PHOSPHATASE 54 U/L (40-136); CREATININE SERUM 0.76 MG/DL (0.60-1.30); GFR ESTIMATED 129
[2021-05-15 11:10] LABS: BUN/CREATININE RATIO 13
[2021-05-15 11:12] LABS: ALANINE AMINOTRANSFERASE 19 U/L (0-55); LIPASE 26 U/L (8-78)
[2021-05-15 11:21] LABS: BACTERIA,URINE NEGATIVE /HPF
[2021-05-15 11:22] LABS: BAND NEUTROPHILS 3 %; BASOPHILS % (MANUAL) 1 %; EOSINOPHILS % (MANUAL) 0 %; LYMPHOCYTES % (MANUAL) 4 %; MONOCYTES % (MANUAL) 5 %; NEUTROPHILS % (MANUAL) 86 %; RBC MORPH NORMAL; REACTIVE LYMPHOCYTES 1 %
[2021-05-15 11:22] LABS: AMPHETAMINE SCREEN, URINE NEGATIVE (NEGATIVE); BARBITURATE SCREEN URINE NEGATIVE (NEGATIVE); BENZODIAZEPINES SCREEN URINE NEGATIVE (NEGATIVE); CANNABINOID SCREEN, URINE POSITIVE (NEGATIVE); COCAINE SCREEN URINE NEGATIVE (NEGATIVE); METHADONE STAT NEGATIVE (NEGATIVE); METHAMPHETAMINE SCREEN URINE S NEGATIVE (NEGATIVE); OPIATE SCREEN URINE NEGATIVE (NEGATIVE); OXYCODONE STAT NEGATIVE (NEGATIVE); PROPOXYPHENE STAT NEGATIVE (NEGATIVE); TRICYCLIC ANTIDEPRESSANTS SCRE NEGATIVE (NEGATIVE)
[2021-05-15] MEDS ORDERED: NS 100 ML (IVPB) BAG IV ONE (11:30)
[2021-05-15] MEDS ORDERED: HOLD METFORMIN - RECEIVED CONTRAST 20 ML VIAL IV SCH (11:30)
[2021-05-15] MEDS ORDERED: IOHEXOL 350 MG/ML 100 ML (OMNIPAQUE 350) VIAL IV ONE (11:30)
[2021-05-15] MEDS ORDERED: CATHETER FLUSH 10 ML SYR IV PRN (11:30)
--- NOTE | 2021-05-15 12:15 | Diagnostic Imaging Report ---
PROCEDURE: CT abdomen and pelvis with contrast. TECHNIQUE: Multiple contiguous axial images were obtained through the abdomen and pelvis after administration of intravenous contrast. Auto Exposure Controls were utilized during the CT exam to meet ALARA standards for radiation dose reduction. All CT scans use one or more of the following dose optimizing techniques: automated exposure control, MA and/or KvP adjustment based on patient size and exam type or iterative reconstruction. INDICATION: Worsening abdominal pain. COMPARISON: Comparison is made with prior CT from 01/23/2021. FINDINGS: The lung bases are clear. Liver and gallbladder are unremarkable. Pancreas and spleen are unremarkable. No adrenal mass is detected. Kidneys are without evidence of hydronephrosis. Aorta is nonaneurysmal. There are some nonspecific mildly dilated fluid-filled small bowel loops in the right abdomen. Remainder of the bowel loops appear unremarkable. There is no free fluid. No fluid collection is seen. There is no free air identified. No definite inflammatory changes are seen. The bladder and prostate are unremarkable. IMPRESSION: There is some mild nonspecific fluid-filled distention of small bowel loops in the right lower quadrant, perhaps on the basis of nonspecific enteritis. The study is otherwise unremarkable. Dictated by: Dictated on workstation # [id number]
[2021-05-15] MEDS ORDERED: ONDA8TAB13 PO (12:19)
[2021-05-15 12:36] VITALS: BP 95/58
== END 2021-05-15 12:36 | disposition home or self-care (01) ==
LOC: EDUNIT# 10:17 → ER 10:19
DX: K52.9 Noninfective gastroenteritis and colitis, unspecified (principal); F17.210 Nicotine dependence, cigarettes, uncomplicated
CPT/HCPCS: 74177; 80053; 80306; 81000; 83690; 85007; 85027; 85652; 86141; 99284; G0480; 36415; 80320

== ENCOUNTER 2021-10-01 14:11 | Emergency (ER) | payer SELFPAY ==
[~2021-10-01] VITALS: Ht 172 cm; Wt 56.0 kg
[~2021-10-01 14:11] MED LIST changes: +ONDA8TAB13 PO
--- NOTE | 2021-10-01 14:36 | ED Back Pain ---
General Chief Complaint: Back Problems Stated Complaint: BACK PAIN Nursing Triage Note: patient complaint of back pain. states injury a year and half ago. patient states lower back pain. Source of Information: Patient Exam Limitations: No Limitations History of Present Illness Date Seen by Provider: Oct 01, 2021 Time Seen by Provider: 14:33 Initial Comments Patient is a 26-year-old male who presents ED with low back pain. Patient state s a year and a half ago he fell off a 4 foot ladder and window ledge landed on his lower back on a water spigot. Had immediate pain and has been dealing with pain over the past year and a half. Takes Tylenol ibuprofen almost daily. Patient woke up around 3:00 with severe pain felt his back locked up. When on the couch to pop his back and since then has had a pulsating pain in his lower back. No bowel or urine incontinence or saddle paresthesia. He has some pain with any type of movement. Denies of any lower extremity weakness or sensory changes, fever, chills, abdominal pain, chest pain, shortness of breath or cough. Patient has 3 belts around his back for support. Patient denies getting imaging of his lower back after the fall Allergies and Home Medications Allergies Coded Allergies: No Known Drug Allergies (Unverified , 01/19/10) Patient Home Medication List Home Medication List Reviewed: Yes Acetaminophen (Tylenol Extra Strength) 500 Mg Tablet, 1,000 MG PO DAILY PRN for XAVIER, (Reported) Entered as Reported by: SANDRA CLINE on 11/27/14 1509 Amoxicillin/Potassium Clav (Augmentin 875-125 Tablet) 1 Each Tablet, 1 EACH PO BID Prescribed by: XIAO MASON on 07/09/18 0339 Ciprofloxacin HCl (Ciprofloxacin HCl) 500 Mg Tablet, 500 MG PO BID Prescribed by: MONY POLO on 01/23/21 0532 Cyclobenzaprine HCl (Cyclobenzaprine HCl) 10 Mg Tablet, 10 MG PO TID Prescribed by: LIZABETH WING on 10/01/21 1543 Dicyclomine HCl (Dicyclomine HCl) 20 Mg Tablet, 20 MG PO Q6H Prescribed by: MONY POLO on 01/23/21 0532 Ibuprofen (Ibuprofen) 200 Mg Tablet, 800 MG PO DAILY PRN for PAIN, (Reported) Entered as Reported by: SANDRA CLINE on 11/27/14 1509 Lactobacillus Acidophilus (Acidophilus Lactobacillus) 1 Gm Powder, 1 GM MC QID Prescribed by: MONY POLO on 01/23/21 0532 Loratadine/Pseudoephedrine (Claritin-D 24 Hour Tablet) 1 Each Tab.er.24h, 1 TAB PO DAILY, (Reported) Entered as Reported by: LETY WEBSTER on 11/13/14 161 Metronidazole (Metronidazole) 500 Mg Tablet, 500 MG PO QID Prescribed by: MONY POLO on 01/23/21 0532 Montelukast Sodium (Montelukast Sodium) 10 Mg Tablet, 10 MG PO HS, (Reported) Entered as Reported by: LETY WEBSTER on 11/13/14 161 Naproxen (Naproxen) 500 Mg Tablet, 500 MG PO Q12H Prescribed by: LIZABETH WING on 10/01/21 1543 Ondansetron (Ondansetron Odt) 4 Mg Tab.rapdis, 4 MG PO Q4H Prescribed by: MONY POLO on 01/23/21 0532 Ondansetron (Ondansetron Odt) 8 Mg Tab.rapdis, 8 MG PO Q6H PRN for NAUSEA/VOMITING Prescribed by: REHAN SQUIRES on 05/15/21 1219 Sertraline HCl (Sertraline HCl) 100 Mg Tablet, 100 MG PO DAILY, (Reported) Entered as Reported by: LEYT WEBSTER on 11/13/141616 Sumatriptan Succinate (Imitrex) 100 Mg Tablet, 100 MG PO UD PRN for MIGRAINE, (Reported) Entered as Reported by: LETY WEBSTER on 11/13/14 161 Review of Systems Constitutional: No chills EENTM: No ear pain, No blurred vision, No double vision, No vision loss, No hoarseness, No mouth pain, No mouth swelling, No throat pain, No throat swelling Respiratory: No cough, No dyspnea on exertion Cardiovascular: No chest pain Gastrointestinal: No abdominal pain, No diarrhea, No nausea, No vomiting Genitourinary: No decreased output, No discharge Musculoskeletal: back pain, joint pain Skin: No change in color, No change in hair/nails All Other Systems Reviewed Negative Unless Noted: Yes Past Jzayjkr-Qogkpb-Mvyuym Hx Patient Social History Tobacco Use?: No Use of E-Cig and/or Vaping dev: No Substance use?: No Alcohol Use?: No Pt feels they are or have been: No Immunizations Up To Date Tetanus Booster (TDap): Unknown PED Vaccines UTD: No First/Initial COVID19 Vaccinat: pfizer Past Medical History Surgery/Hospitalization HX: ABD SURGERY, SEIZURES, ASTHMA Surgeries: Yes (MULTIPLE EGD'S - GASTRIC FLAP SURGERY. ) Abdominal Respiratory: Yes Asthma Cardiac: No Neurological: No Reproductive Disorders: No Sexually Transmitted Disease: No Gastrointestinal: Yes (ACID REFLUX) Gastroesophageal Reflux Musculoskeletal: No Endocrine: No HEENT: No (GLASSES) Cancer: No Psychosocial: Yes (POLYSUBSTANCE ABUSE) ADD/ADHD, Anxiety, Bipolar, Violent Behavior, Depression Integumentary: No Blood Disorders: No Family Medical History ANXIETY 19 MOTHER BORDERLINE PERSONALITY DISORDER 19 MOTHER DEPRESSION 19 MOTHER Hypertension 19 FATHER Seizure disorder 19 MOTHER Physical Exam Vital Signs Vital Signs - First Documented 10/01/21 14:24 Temp 37.1 Pulse 99 Resp 18 B/P (MAP) 118/80 (93) Pulse Ox 99 O2 Delivery Room Air Capillary Refill : Less Than 3 Seconds Height, Weight, BMI Height: 5'8.00" Weight: 180lbs. 0.0oz. 81.535699ep; 18.00 BMI Method:Stated General Appearance: No Apparent Distress, WD/WN HEENT: PERRL/EOMI, TMs Normal, Normal ENT Inspection, Pharynx Normal Neck: Full Range of Motion, Normal Inspection, Non Tender, Supple Cardiovascular: Regular Rate, Rhythm, No Edema, No Gallop, No JVD, No Murmur Respiratory: Chest Non Tender, Lungs Clear, Normal Breath Sounds, No Accessory Muscle Use, No Respiratory Distress Back: Decreased Range of Motion, Vertebral Tenderness (Lumbar midline tenderness. Bilateral lumbar paraspinal muscle tenderness. 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 Skin: Normal Color Progress/Results/Core Measures Results/Orders My Orders Orders - FLO THOMPSON Lumbar Spine - 2-3 Views (10/01/21 14:32) Ketorolac Injection (Toradol Injection) (10/01/21 14:45) Orphenadrine Inj (Ed Only) (Norflex Inje (10/01/21 14:45) Medications Given in ED Current Medications Medications Dose Ordered Sig/Isai Route Start Time Stop Time Status Last Admin Dose Admin Ketorolac Tromethamine 30 mg ONCE ONCE IM 10/01/21 14:45 10/01/21 14:46 DC 10/01/21 14:48 30 MG Orphenadrine Citrate 60 mg ONCE ONCE IM 10/01/21 14:45 10/01/21 14:46 DC 10/01/21 14:48 60 MG Vital Signs/I&O 10/01/21 14:24 Temp 37.1 Pulse 99 Resp 18 B/P (MAP) 118/80 (93) Pulse Ox 99 O2 Delivery Room Air Blood Pressure Mean: 93 Departure Communication (PCP) X-ray was negative for acute abnormality. Due to the patient's pain will discharge with anti-inflammatories and muscle relaxers. Was given dose of Toradol and Norflex here. Patient has had ongoing pain for the past year and a half. Discussed outpatient follow-up for further evaluation, physical therapy which he may benefit from. If any worsening symptoms return back to ED for further evaluation. No neurological red flag findings such as bowel or urine incontinence, saddle paresthesia Impression Primary Impression: Back pain Disposition: 01 HOME, SELF-CARE Condition: Stable Departure-Patient Inst. Decision time for Depature: 15:42 Referrals: [facility] (PCP/Family) Primary Care Physician Patient Instructions: Low Back Pain (DC) Scripts Cyclobenzaprine HCl (Cyclobenzaprine HCl) 10 Mg Tablet 10 MG PO TID for Muscle Spasms, #16 TAB Prov: FLO THOMPSON 10/01/21 Naproxen (Naproxen) 500 Mg Tablet 500 MG PO Q12H, #20 TAB Prov: FLO THOMPSON 10/01/21 FLO THOMPSON Oct 01, 2021 14:36
[2021-10-01] MEDS ORDERED: ORPHENADRINE 60 MG/2 ML (NORFLEX) AMP (ED ONLY) IM ONE (14:45)
[2021-10-01] MEDS ORDERED: KETOROLAC 30 MG/ML VIAL IM ONE (14:45)
--- NOTE | 2021-10-01 14:57 | Diagnostic Imaging Report ---
EXAMINATION: Lumbosacral spine 2 or 3 views HISTORY: Back pain. COMPARISON: None available. FINDINGS: There is normal height and alignment of the vertebral bodies. Intervertebral disc spaces appear preserved. Vertebral body heights are maintained. Soft tissues are unremarkable. IMPRESSION: 1. Unremarkable lumbar spine. Dictated by: Dictated on workstation # [id number]
[2021-10-01] MEDS ORDERED: NAPR-915 PO (15:43)
[2021-10-01] MEDS ORDERED: CYCL10TA25 PO (15:43)
[2021-10-01 15:48] VITALS: BP 118/80
== END 2021-10-01 15:48 | disposition home or self-care (01) ==
LOC: EDUNIT# 14:11 → ER 14:12
DX: M54.50 Low back pain, unspecified (principal); Z79.1 Long term (current) use of non-steroidal anti-inflammatories (NSAID); X50.1XXA Overexertion from prolonged static or awkward postures, initial encounter
CPT/HCPCS: 72100; 99283

== ENCOUNTER 2021-11-24 10:07 | Emergency (ER) | payer SELFPAY ==
[~2021-11-24] VITALS: Ht 175 cm; Wt 56.0 kg
[~2021-11-24 10:07] MED LIST changes: +CYCL10TA25 PO; +NAPR-915 PO
[2021-11-24 10:17] VITALS: BP 119/77
== END 2021-11-24 12:59 | disposition left against medical advice (07) ==
LOC: EDUNIT# 10:07 → ER 10:10
DX: R06.02 Shortness of breath (principal)